=== PATIENT | male | born 2000 | race Caucasian/White ===

== ENCOUNTER 2020-09-23 19:15 | Emergency (ER) | payer OTHER ==
[~2020-09-23] VITALS: Ht 188 cm; Wt 70.3 kg
[2020-09-23 19:32] VITALS: BP 131/65
[2020-09-23] MEDS ORDERED: LIDOCAINE 1% VIAL ONE (20:08)
--- NOTE | 2020-09-23 20:25 | NUR ---
WOUND CARE NEOSPORIN APPLIED,TEFLA PAD,AND BANDAGE
--- NOTE | 2020-09-23 20:27 | ER.PDOC ---
General Chief Complaint: Extremities Stated Complaint: LACERATION TO THE THIGH Time seen by MD: 20:20 Source: patient Exam Limitations: no limitations History of Present Illness Initial Comments Laceration right thigh Onset: just prior to arrival Where: home Context: laceration Severity: moderate Allergies: Coded Allergies: Penicillins (Verified Allergy, Unknown, Rash, 09/23/20) codeine (Verified Allergy, Unknown, 09/23/20) Past Medical History Medical History: no pertinent history Family History Significant Family History: no pertinent family hx Social History Alcohol Use: occassionally Drug Use: none Review of Systems Constitutional: no symptoms reported EENTM: no symptoms reported Respiratory: no symptoms reported Cardiovascular: no symptoms reported Gastrointestinal: no symptoms reported Skin: see HPI All Other Systems: Reviewed and Negative Physical Exam General Appearance: Alert, No Apparent Distress Ankle: nml inspection, non-tender, nml ROM, no joint swelling, skin intact Knee: nml inspection, non-tender, nml ROM, no joint swelling 1 - Lac Gait: normal Neuro/Vasc/Tendon: sensation nml, motor nml, no vascular compromise, tendon function nml Skin: warm/dry Head/ENT: nml inspection, pharynx nml Neck/Back: nml inspection, non-tender Abdomen: non-tender, pelvis stable ED LACERATION WOUND REPAIR # of Wounds/Lacerations Presen: 1 Wound Location & Length (Requi: right thigh Wound Length (cm): 4 Anesthesia: 1% Lidocaine Volume Anesthetic (ccs): 10 Wound's Depth, Shape: linear Irrigated w/ Saline (ccs): 30 Wound Repaired With: sutures Suture Size/Type: 4:0, prolene Suture Style: interupted Number of Sutures: 5 Sterile Dressing Applied?: Yes Results/Orders Results/Orders Orders - MARITZA PHAN MD Lidocaine Hcl (Lidocaine 1% Vial) (09/23/20 20:08) Vital Signs Date Time Temp Pulse Resp B/P (MAP) Pulse Ox O2 Delivery O2 Flow Rate FiO2 09/23/20 19:32 98.1 74 16 131/65 (87) 99 Room Air 09/23/20 19:32 98.1 74 16 99 09/23/20 19:32 98.1 74 16 Progress Progress Patient told me that he had a tetanus shot 2 years ago. ER DEPART Departure Time of Disposition: 20:26 Disposition: 01 HOME, SELF-CARE Impression: Primary Impression: Laceration of thigh, right Condition: Stable Referrals: PCP,UNKNOWN (PCP) PRIMARY CARE PROVIDER Additional Instructions: Keflex Ibuprofen Apply Neosporin daily Remove sutures in 8 days at your PCP or ED Duration or Time Spent with Pa: 20 min Problem Qualifiers Primary Impression: Laceration of thigh, right Encounter type: initial encounter Qualified Codes: S71.111A - Laceration without foreign body, right thigh, initial encounter MARITZA PHAN MD Sep 23, 2020 20:27
[2020-09-23 20:30] VITALS: BP 125/60
[2020-09-23] MEDS ORDERED: TRIPLE ANTIBIOTIC OINTMENT TP ONE (20:31)
== END 2020-09-23 20:30 | disposition home or self-care (01) ==
LOC: ER 19:15
DX: S71.111A Laceration without foreign body, right thigh, initial encounter (principal); Z88.5 Allergy status to narcotic agent; Z88.0 Allergy status to penicillin; X58.XXXA Exposure to other specified factors, initial encounter; Y93.89 Activity, other specified; Y92.098 Other place in other non-institutional residence as the place of occurrence of the external cause; Y99.8 Other external cause status
CPT/HCPCS: 12002; 99282; J2001

== ENCOUNTER 2020-10-01 17:57 | Emergency (ER) | payer OTHER ==
[~2020-10-01] VITALS: Ht 182.9 cm; Wt 77.1 kg
[2020-10-01 18:06] VITALS: BP 140/79
[2020-10-01 18:11] VITALS: BP 140/79
--- NOTE | 2020-10-01 18:22 | ER.PDOC ---
General Chief Complaint: Wound Recheck/Suture Removal Stated Complaint: WOUND CARE Time seen by MD: 18:19 Source: patient Exam Limitations: no limitations History of Present Illness Initial Procedure Done In ER: For suture removal right thigh Treated In Another ED/Practice: No Previous ED Treatment: laceration repair Antobiotics Given: prescription Symptoms Since Procedure: no complaints Allergies: Coded Allergies: Penicillins (Verified Allergy, Unknown, Rash, 09/23/20) codeine (Verified Allergy, Unknown, 09/23/20) Past Medical History Medical History: no pertinent history Surgical History: no surgical history Family History Significant Family History: no pertinent family hx Social History Alcohol Use: occassionally Drug Use: none Constitutional: no symptoms reported EENTM: no symptoms reported Respiratory: no symptoms reported Cardiovascular: no symptoms reported Gastrointestinal: no symptoms reported Skin: see HPI All Other Systems: Reviewed and Negative Physical Exam General Appearance: alert, no distress Neuro/Vascular/Tendon: no vascular compromise, sensation nml, no tendon injury, nml ROM Skin: no infection, healing wound (right thigh) Head/ENT: nml inspection, pharynx nml Neck/Back: nml inspection, non-tender, painless ROM Respiratory: chest non-tender, no resp. distress, breath sounds nml CVS: reg. rate & rhythm, heart sounds nml Abdomen: non-tender, no organomegaly Results/Orders Results/Orders Vital Signs Date Time Temp Pulse Resp B/P (MAP) Pulse Ox O2 Delivery O2 Flow Rate FiO2 10/01/20 18:11 98.1 81 18 140/79 (99) 99 Room Air 10/01/20 18:06 98.1 81 18 10/01/20 18:06 98.1 85 18 99 Progress Progress Sutures removed by RN and wound healing well. ER DEPART Departure Time of Disposition: 18:22 Disposition: 01 HOME, SELF-CARE Impression: Primary Impression: Laceration of thigh, right Condition: Stable Referrals: PCP,UNKNOWN (PCP) PRIMARY CARE PROVIDER Additional Instructions: F/U with your PCP as needed Return to ED if any concerns Duration or Time Spent with Pa: 10 min Problem Qualifiers Primary Impression: Laceration of thigh, right Encounter type: initial encounter Qualified Codes: S71.111A - Laceration without foreign body, right thigh, initial encounter MARITZA PHAN MD Oct 01, 2020 18:22
== END 2020-10-01 18:30 | disposition home or self-care (01) ==
LOC: ER 17:57
DX: S71.111D Laceration without foreign body, right thigh, subsequent encounter (principal); Z88.0 Allergy status to penicillin; Z88.5 Allergy status to narcotic agent; X58.XXXD Exposure to other specified factors, subsequent encounter
CPT/HCPCS: 99281

== ENCOUNTER 2020-10-28 13:55 | Emergency (ER) | payer OTHER ==
[~2020-10-28] VITALS: Ht 185.4 cm; Wt 79.4 kg
--- NOTE | 2020-10-28 13:58 | NUR ---
ANIMAL CONTROL DISPATCH NOTIFIED FOR ANIMAL CONTROL
[2020-10-28] MEDS ORDERED: SODIUM CHLORIDE IRR BOTTLE IR ONE (13:59)
[2020-10-28 14:06] VITALS: BP 135/71
--- NOTE | 2020-10-28 15:02 | ER.PDOC ---
General Chief Complaint: Animal Bite Stated Complaint: DOG BITE Time seen by MD: 14:30 Source: patient Exam Limitations: no limitations History of Present Illness Initial Comments This patient was petting a stray dog that was out in the alley and it bit him on his right index finger and on his left thigh. He has no other injuries. He states his last tetanus was updated in 2019. He does not know who his dog this is. Animal control has been notified. Onset: just prior to arrival Where: home Animal: dog Animal Appearance: appeared well Animal Immunizations: unknown Animal Disposition: Animal Control Notified Context of Attack: approached animal Severity of Injury: bitten Injury Location: upper extremity, lower extremity Associated Symptoms: pain on movement Allergies: Coded Allergies: Penicillins (Verified Allergy, Unknown, Rash, 09/23/20) codeine (Verified Allergy, Unknown, 09/23/20) Past Medical History Medical History: no pertinent history Surgical History: other Social History Alcohol Use: none Drug Use: none Review of Systems All Other Systems: Reviewed and Negative Physical Exam General Appearance: alert, no distress Skin: puncture Neuro/Vascular/Tendon: no vascular compromise, sensation nml, oriented x3, nml ROM, CN's nml as tested Psych: mood/affect nml HEENT: atraumatic, PERRL, eye lids/conjun nml, ENT nml external inspect. Neck: uninjured, nml inspection Resp/CVS: chest non-tender, breath sounds nml, heart sounds nml, reg. rate & rhythm Abdomen: nml inspection, non-tender Back: nml inspection Extremities: no infection, ROM limited by pain (This patient has a puncture wound of his left index finger just proximal to the DIP joint. He does have good extension and flexion of this finger. He has no pain on axial loading. He has also 2 puncture wounds in his left thigh just above the patella this is not bleeding at this time. Wounds will be cleaned and patient will not have anythi ng closed he will be instructed to keep these clean and to start him on an antibiotic that will cover dog bite infections. Patient is allergic to penicillin so we will use clindamycin.) Results/Orders Results/Orders Vital Signs Date Time Temp Pulse Resp B/P (MAP) Pulse Ox O2 Delivery O2 Flow Rate FiO2 10/28/20 14:14 98.3 87 20 98 10/28/20 14:06 98.3 87 20 10/28/20 14:06 98.3 89 20 98 ER DEPART Departure Time of Disposition: 15:00 Disposition: 01 HOME, SELF-CARE Impression: Primary Impression: Dog bite of right hand Condition: Stable Referrals: PCP,UNKNOWN (PCP) PRIMARY CARE PROVIDER Comments Clindamycin 300 mg 4 times daily x7 days Duration or Time Spent with Pa: 20m EMMA MACK MD Oct 28, 2020 15:02
[2020-10-28 15:15] VITALS: BP 110/72
== END 2020-10-28 15:15 | disposition home or self-care (01) ==
LOC: ER 13:55
DX: S71.152A Open bite, left thigh, initial encounter (principal); S61.250A Open bite of right index finger without damage to nail, initial encounter; W54.0XXA Bitten by dog, initial encounter; Y93.89 Activity, other specified; Y92.89 Other specified places as the place of occurrence of the external cause; Y99.8 Other external cause status
CPT/HCPCS: 99283; A4217

== ENCOUNTER 2020-12-25 13:49 | Emergency (ER) | payer OTHER ==
[~2020-12-25] VITALS: Ht 188 cm; Wt 77.1 kg
[2020-12-25 13:58] VITALS: BP_SYST 140; BP_DIAS 70; BP_DIAS 73
[2020-12-25 14:02] VITALS: BP 140/70
--- NOTE | 2020-12-25 14:03 | NUR ---
ARRIVAL PATIENT ARRIVED TO ED[facility] AMBULATORY, C/O OF SORE THROAT,CONGESTION,AND BODY ACHES FOR THE PAST 5 DAYS, WAS TESTED FOR COVID LAST WEDNESDAY WITH A NEGATIVE RESULT, SORE THROAT CONTINUES, DECIDED TO COME TO THE ED FOR EVAL. DOCTOR MACK NOTIFIED OF PATIENT'S ARRIVAL.
--- NOTE | 2020-12-25 14:22 | ER.PDOC ---
General Chief Complaint: Sore Throat Stated Complaint: SORE THROAT,CONGESTION,BODY ACHES TRAVEL OUT OF US: No Time seen by MD: 14:00 Source: patient Exam Limitations: no limitations History of Present Illness Initial Comments This 20-year-old white male comes in with a complaint that for the last 5 days he is just generally not felt good. He has some nasal congestion, sore throat, body aches, nausea, vomited once and has loose stools, but, not watery but call ed diarrhea. Patient states that he was tested at work Wednesday for Covid and was negative.Patient's biggest complaint is a sore throat and was worried about the possibility of strep. When I was examining his abdomen he had more tenderness than I had expected. The tenderness certainly localized to the right lower quadrant. He does not have classic guarding or rebound. He certainly has tenderness however on percussion and deep palpation. Timing/Duration: 1 week Severity: moderate Modifying Factors: improves with other (nothing) Associated Symptoms: cough, nausea/vomiting, other (Generalized body aches) Allergies: Coded Allergies: Penicillins (Verified Allergy, Unknown, Rash, 09/23/20) codeine (Verified Allergy, Unknown, 09/23/20) Past Medical History Medical History: no pertinent history Surgical History: other Family History Significant Family History: other (Patient was foster care. He does know that his maternal mother had bipolar problems. Father is unknown) Social History Alcohol Use: none Drug Use: none Review of Systems Constitutional: malaise, other (Generalized body aches and pains.Does not believe he had any fever) EENTM: throat pain Respiratory: cough Gastrointestinal: abdominal pain, diarrhea, nausea, vomiting All Other Systems: Reviewed and Negative Physical Exam General Appearance: No Apparent Distress, WD/WN EENT: eyes nml inspection, pharyngeal erythema Neck: Full Range of Motion, Supple, Other (Patient has tenderness in the anterior cervical chain. However discrete lymph nodes were not noted.) Respiratory: chest non-tender, lungs clear, normal breath sounds, no respiratory distress CVS: reg rate & rhythm, no murmur, no gallop, pulses nml Gastrointestinal: No Organomegaly, No Pulsatile Mass, Hypoactive bowel sounds, Tenderness, Other (Patient has percussion tenderness right lower quadrant. Pain in the right lower quadrant on deep palpation. He does not have classic guarding or rebound. However, is more tender there than I had thought. 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 as Tested, No Motor/Sensory Deficits, Alert, Normal Mood/Affect, Oriented x 3 Skin: Normal Color, Warm/Dry Lymphatic: No Adenopathy Results/Orders Results/Orders Orders - EMMA MACK MD Strep Screen (12/25/20 14:18) Cbc With Auto Diff (12/25/20 14:18) Basic Metabolic Panel (12/25/20 14:18) Saline Lock (12/25/20 14:18) Vital Signs Date Time Temp Pulse Resp B/P (MAP) Pulse Ox O2 Delivery O2 Flow Rate FiO2 12/25/20 14:02 98.0 64 18 140/70 (93) 96 Room Air 12/25/20 13:58 98.0 64 18 96 12/25/20 13:58 98.0 64 18 140/70 (93) 96 Room Air 12/25/20 13:58 98.0 64 18 Laboratory Tests Test 12/25/20 14:21 12/25/20 14:22 Group A Streptococcus Screen NEGATIVE (NEGATIVE) White Blood Count 6.2 10^3/uL (4.5-11.0) Red Blood Count 5.26 10^6/uL (4.50-5.90) Hemoglobin 15.9 g/dL (13.9-16.3) Hematocrit 46.0 % (37.0-53.0) Mean Corpuscular Volume 87.5 fL (78-100) Mean Corpuscular Hemoglobin 30.2 pg (26-34) Mean Corpuscular Hemoglobin Concent 34.6 g/dL (33-36.5) Red Cell Distribution Width 12.8 % (11.5-14.5) Platelet Count 217 10^3/uL (150-400) Mean Platelet Volume 10.0 fL (7.8-11.0) Neutrophils (%) (Auto) 60.8 % (41.0-85.0) Lymphocytes (%) (Auto) 27.0 % (24.0-44.0) Monocytes (%) (Auto) 8.3 % (5.0-12.0) Neutrophils # (Auto) 3.8 10^3/uL (1.8-7.7) Lymphocytes # (Auto) 1.67 10^3/uL1 (1.0-4.8) Monocytes # (Auto) 0.5 10^3/uL (0.3-0.8) Absolute Immature Granulocyte (auto 0 10^3 u/L (0-2) Absolute Eosinophils (auto) 0.2 10^3/uL (0.0-0.2) Immature Granulocytes % 0.00 % (0.00-0.50) Eosinophils % 3.4 % (0.0-5.0) Basophils % 0.5 % (0.0-0.2) H Basophils # 0.0 10^3/uL (0.0-0.1) Progress Progress Strep negative, CBC totally normal. ER DEPART Departure Time of Disposition: 14:31 Disposition: 01 HOME, SELF-CARE Impression: Primary Impression: Viral syndrome Condition: Stable Patient Instructions: Upper Respiratory Infection, Adult, Sore Throat, [id number] Referrals: PCP,UNKNOWN (PCP) PRIMARY CARE PROVIDER Comments OTC Tylenol and or Motrin as needed for the body aches & pains. Duration or Time Spent with Pa: 20m EMMA MACK MD Dec 25, 2020 14:22
[2020-12-25 14:28] LABS: BASOPHIL % 0.5 % (0.0-0.2); EOSINOPHIL # 0.2 10^3/uL (0.0-0.2); EOSINOPHIL % 3.4 % (0.0-5.0); LYMPHOCYTES # 1.67 10^3/uL1 (1.0-4.8); MEAN CORP HGB 30.2 pg (26-34); MONOCYTES # 0.5 10^3/uL (0.3-0.8); MONOCYTES % 8.3 % (5.0-12.0); NEUTROPHIL # 3.8 10^3/uL (1.8-7.7); NEUTROPHILS % 60.8 % (41.0-85.0); PLATELET COUNT 217 10^3/uL (150-400); RED CELL DISTRIBUTION WIDTH 12.8 % (11.5-14.5)
[2020-12-25 14:35] VITALS: BP 131/58
[2020-12-25 14:42] LABS: CALCIUM 9.1 mg/dL (8.4-10.5); CARBON DIOXIDE 26.1 mmol/L (20.0-32)
== END 2020-12-25 14:36 | disposition home or self-care (01) ==
LOC: ER 13:49
DX: B34.9 Viral infection, unspecified (principal); Z88.0 Allergy status to penicillin; Z88.5 Allergy status to narcotic agent
CPT/HCPCS: 36415; 80048; 85025; 87070; 87880; 99283